=== PATIENT | female | born 1970 | race Caucasian/White ===

== ENCOUNTER → 2016-11-13 | Day surgery (SDC) | payer OTHER ==
[~2016-11-13] VITALS: Ht 162.5 cm; Wt 50.8 kg
[~2016-11-13] MED LIST: KLONOPIN1 M1 PO; NEURONTIN800 MG PO; NORCO 5-325 TA1 EACH PO
--- NOTE | ~2016-11-13 | O ---
[place], [place] OPERATIVE NOTE NAME: NADEGE AREVALO UNIT #: [id number] ROOM: DOCTOR: MAZIN COLIN MD BIRTHDATE: [birth year] DOS: 11/13/2016 PREOPERATIVE DIAGNOSIS: Left inguinal lymphadenopathy. POSTOPERATIVE DIAGNOSIS: Left inguinal lymphadenopathy. PROCEDURE: Excision biopsy of left inguinal lymph node. SURGEON: Mazin Colin M.D. BOBBIN DISKER: MS3. ANESTHESIA: MAC. INDICATIONS: This is a 45-year-old lady with a history of tender lymph node in the left inguinal region who is here for the above-mentioned procedure. The procedure and its complications were explained to the patient in detail preoperatively. Complications that were discussed included but were not limited to bleeding, infection, lymphocele formation, hematoma formation and prolonged postoperative pain. She agreed to proceed. DESCRIPTION OF PROCEDURE: After identifying the patient, the patient was brought to the operating suite and laid in the supine position. After IV sedation was administered, a timeout procedure was called and the parts were then painted and draped in the usual sterile fashion. An incision was marked and local anesthesia was infiltrated in the line of the incision. Skin incision was made and deepened in layers. A lymph node was identified and from the surrounding structures. The hepatic vessels were ligated with the help of 2-0 Vicryl and the lymph node was then excised and sent for histopathological diagnosis. Hemostasis was achieved with the help of electrocautery. Thereafter, saline was used for irrigation. The subcutaneous tissue was approximated with the help of 3-0 Vicryl in an interrupted fashion and the skin edges were approximated with the help of 4-0 Vicryl in a subcuticular running fashion. Dressing was placed. The patient tolerated the procedure well. There were no complications. Dr. Mazin Colin, the attending surgeon was present throughout the operating case. [place], [place] OPERATIVE NOTE NAME: NADEGE AREVALO UNIT #: [id number] ROOM: DOCTOR: MAZIN COLIN MD BIRTHDATE: [birth year] Mazin Colin MD CM:OPRECORD:OPERATIVE NOTE 1328 1622 MAZIN COLIN MD 11/13/16 1622 interface
[2016-11-13 09:11] LABS: BILIRUBIN 1+ (NEGATIVE); BLOOD NEGATIVE (NEGATIVE); CLARITY CLEAR (CLEAR); COLOR YELLOW (YELLOW); GLUCOSE NEGATIVE (NEGATIVE); KETONE NEGATIVE (NEGATIVE); LEUKO ESTERASE NEGATIVE (NEGATIVE); NITRITE NEGATIVE (NEGATIVE); PH 5.5 (5.0-9.0); PROTEIN NEGATIVE (NEGATIVE); SPECIFIC GRAVITY <= 1.005 (1.005-1.030); UROBILINOGEN 0.2 E.U./dl (0.2-1.0)
[2016-11-13 09:12] LABS: EOS # 0.3 10*3/uL (0.0-0.4); EOS % 5.5 % (1.0-4.0); HEMATOCRIT 40.2 % (37.0-47.0); HEMOGLOBIN 12.9 g/dl (12.0-16.0); LYMPH # 1.7 10*3/uL (1.3-4.4); MEAN CELL VOLUME 90.1 fl (81.0-99.0); MEAN CORPUSCULAR HGB 28.9 pg (27.0-31.0); MEAN CORPUSCULAR HGB CONC 32.1 g/dl (33.0-37.0); MEAN PLATELET VOLUME 11.3 fl (9.6-12.3); MONO # 0.6 10*3/uL (0.1-1.0); MONO % 9.7 % (3.0-9.0); NEUT # 3.3 10*3/uL (2.3-7.9); NEUT % 55.6 % (47.0-73.0); PLATELET COUNT AUTOMATED 184 10*3/uL (130-400); RED BLOOD COUNT 4.46 10*6/uL (4.10-5.10); RED CELL DISTRI WIDTH 13.1 % (0-14.5)
[2016-11-13 09:18] LABS: INTERNATIONAL NORM RATIO 0.9 (2.0-3.5); PROTHROMBIN TIME 9.9 SECONDS (9.0-12.4)
[2016-11-13 09:22] LABS: BUN 9 mg/dl (7-24); CARBON DIOXIDE 32 mmol/L (21-32); CHLORIDE 105 mmol/L (98-107); EST GLOM FILT AFRICAN AMERICAN > 60 ml/min; GLUCOSE 88 mg/dL (65-99); POTASSIUM 4.1 mmol/L (3.5-5.1); SODIUM 141 mmol/L (136-145)
[2016-11-13 09:34] LABS: EPITHELIAL CELLS 0-2
[2016-11-13 11:02] VITALS: BP 124/69
[2016-11-13 13:26] VITALS: BP 95/55
[2016-11-13 13:27] VITALS: BP 112/69
[2016-11-13 13:48] VITALS: BP 108/71
== END | disposition home or self-care (01) ==
LOC: CANSCHSDC → SDC 10-16 12:15
PROVIDERS: Surgery
DX: R59.0 Localized enlarged lymph nodes (principal); G47.00 Insomnia, unspecified; F17.210 Nicotine dependence, cigarettes, uncomplicated; F41.9 Anxiety disorder, unspecified; J44.9 Chronic obstructive pulmonary disease, unspecified; Z82.3 Family history of stroke; Z88.0 Allergy status to penicillin; Z87.01 Personal history of pneumonia (recurrent)